=== PATIENT | female | born 1945 | race Caucasian/White ===

== ENCOUNTER → 2016-09-11 | Outpatient (CLI) | payer OTHER ==
[2016-09-11 13:09] LABS: Urine RBC None Seen /hpf (0 - 4)
[2016-09-11 13:18] LABS: Basophils # (auto) 0 uL; Basophils % (auto) 0.7 % (0.0-2.0); Eosinophils # (auto) 0.2 uL; Eosinophils % (auto) 3.5 % (0.0-7.0); Hematocrit 44.3 % (36.0-46.0); Hemoglobin 14.6 g/dL (12.2-16.2); Lymphocytes # (auto) 1.7 uL; Lymphocytes % (auto) 25.8 % (10.0-50.0); Mean Corpuscular Hgb Conc. 32.9 g/dL (32.0-36.0); Mean Corpuscular Volume 94.4 fL (80.0-100.0); Mean Platelet Volume 9.5 fL (7.4-10.4); Monocytes # (auto) 0.4 uL; Neutrophils # (auto) 4.3 uL; Platelet Count (auto) 271 10^3/uL (140-450); Red Cell Distribution Width 16.6 % (11.6-16.0); White Blood Cell 6.7 10^3/uL (4.4-10.8)
[2016-09-11 13:49] LABS: INR 2.55 (0.9-1.15); Prothrombin Time 26.3 sec (9.37-12.3)
[2016-09-11 14:15] LABS: Urine Bilirubin Negative (Negative); Urine Blood Negative /uL (Negative); Urine Color Yellow (Yellow); Urine Glucose Normal (Normal); Urine Ketone Negative (Negative); Urine Nitrite Negative (Negative); Urine Squamous Epithelial Cell FEW /hpf (<5); Urine Urobilinogen Normal (Negative); Urine pH 6.5 (5.0-8.0)
[2016-09-11 15:27] LABS: Albumin 3.7 g/dL (3.4-5.0); BUN/Creatinine Ratio 18.6; Bilirubin, Total 0.7 mg/dL (0.2-1.0); Calcium 9.1 mg/dL (8.5-10.1); Total Protein 7.1 g/dL (6.4-8.2)
== END | disposition home or self-care (01) ==
LOC: LAB 11:01
PROVIDERS: ATTEND Family Medicine
DX: E78.5 Hyperlipidemia, unspecified (principal); I10 Essential (primary) hypertension
CPT/HCPCS: 36415; 80053; 80061; 81001; 82306; 85025; 85610; 85652; 86141

== ENCOUNTER → 2017-01-07 | Outpatient (CLI) | payer OTHER ==
[2017-01-07 12:32] LABS: Basophils # (auto) 0.1 uL; Basophils % (auto) 0.9 % (0.0-2.0); CONDITION Y; Eosinophils # (auto) 0.2 uL; Eosinophils % (auto) 2.7 % (0.0-7.0); Hematocrit 44.4 % (36.0-46.0); Hemoglobin 14.9 g/dL (12.2-16.2); Lymphocytes # (auto) 2.3 uL; Lymphocytes % (auto) 31.1 % (10.0-50.0); Mean Corpuscular Hemoglobin 30.7 pg (28.0-32.0); Mean Corpuscular Hgb Conc. 33.5 g/dL (32.0-36.0); Mean Corpuscular Volume 91.9 fL (80.0-100.0); Mean Platelet Volume 8.4 fL (7.4-10.4); Monocytes # (auto) 0.4 uL; Monocytes % (auto) 5.8 % (0.0-12.0); Neutrophils # (auto) 4.4 uL; Neutrophils % (auto) 59.5 % (37.0-80.0); Platelet Count (auto) 263 10^3/uL (140-450); White Blood Cell 7.4 10^3/uL (4.4-10.8)
[2017-01-07 12:46] LABS: INR 2.11 (0.9-1.15)
[2017-01-07 12:51] LABS: Prothrombin Time 23.2 sec (9.37-12.3)
[2017-01-07 13:09] LABS: Albumin 3.5 g/dL (3.4-5.0); BUN/Creatinine Ratio 14.1; Bilirubin, Total 0.7 mg/dL (0.2-1.0); Calcium 9.2 mg/dL (8.5-10.1); Potassium 3.7 mmol/L (3.5-5.1); Total Protein 7.4 g/dL (6.4-8.2)
== END | disposition home or self-care (01) ==
LOC: LAB 10:40
PROVIDERS: ATTEND Family Medicine
DX: Z79.899 Other long term (current) drug therapy (principal); D64.9 Anemia, unspecified; I10 Essential (primary) hypertension; E78.5 Hyperlipidemia, unspecified; M06.9 Rheumatoid arthritis, unspecified; M25.50 Pain in unspecified joint
CPT/HCPCS: 36415; 80053; 82270; 85025; 85610; 85652; 86141

== ENCOUNTER → 2017-04-09 | Outpatient (CLI) | payer OTHER ==
[2017-04-09 12:15] LABS: Basophils # (auto) 0.1 uL; Basophils % (auto) 2.1 % (0.0-2.0); Eosinophils # (auto) 0.2 uL; Eosinophils % (auto) 3.1 % (0.0-7.0); Hematocrit 44.7 % (36.0-46.0); Hemoglobin 15.2 g/dL (12.2-16.2); Mean Corpuscular Hemoglobin 32.3 pg (28.0-32.0); Mean Corpuscular Hgb Conc. 34.1 g/dL (32.0-36.0); Mean Corpuscular Volume 94.6 fL (80.0-100.0); Mean Platelet Volume 8.7 fL (6.9-10.8); Monocytes # (auto) 0.4 uL; Monocytes % (auto) 6.6 % (0.0-12.0); Neutrophils # (auto) 3.7 uL; Neutrophils % (auto) 57.2 % (37.0-80.0); Platelet Count (auto) 218 10^3/uL (140-450); Red Cell Distribution Width 17.5 % (11.8-14.3); White Blood Cell 6.4 10^3/uL (4.4-10.8)
[2017-04-09 12:23] LABS: INR 2.09 (0.9-1.15); Prothrombin Time 22.9 sec (9.37-12.3)
[2017-04-09 13:23] LABS: Albumin 3.7 g/dL (3.4-5.0); Bilirubin, Total 0.8 mg/dL (0.2-1.0); Calcium 8.9 mg/dL (8.5-10.1); Potassium 3.9 mmol/L (3.5-5.1); Total Protein 7.5 g/dL (6.4-8.2)
[2017-04-09 13:29] LABS: BUN/Creatinine Ratio 18.9
== END | disposition home or self-care (01) ==
LOC: LAB 11:52
DX: I10 Essential (primary) hypertension (principal); I70.0 Atherosclerosis of aorta; E78.00 Pure hypercholesterolemia, unspecified; D64.9 Anemia, unspecified; M06.9 Rheumatoid arthritis, unspecified; M25.50 Pain in unspecified joint; Z79.899 Other long term (current) drug therapy
CPT/HCPCS: 36415; 80053; 83540; 83550; 85025; 85610; 85652; 86141

== ENCOUNTER → 2018-05-29 | Outpatient (CLI) | payer OTHER ==
[2018-05-29 10:48] LABS: Basophils # (auto) 0.1 uL; Basophils % (auto) 1.2 % (0.0-2.0); Eosinophils # (auto) 0.2 uL; Eosinophils % (auto) 3.1 % (0.0-7.0); Hematocrit 46.7 % (36.0-46.0); Hemoglobin 15.6 g/dL (12.2-16.2); Lymphocytes # (auto) 1.4 uL; Lymphocytes % (auto) 24.1 % (10.0-50.0); Mean Corpuscular Hemoglobin 31.6 pg (28.0-32.0); Mean Corpuscular Hgb Conc. 33.3 g/dL (32.0-36.0); Mean Corpuscular Volume 94.9 fL (80.0-100.0); Monocytes # (auto) 0.4 uL; Monocytes % (auto) 7.2 % (0.0-12.0); Neutrophils # (auto) 3.8 uL; Neutrophils % (auto) 64.4 % (37.0-80.0); Platelet Count (auto) 220 10^3/uL (140-450); Red Blood Cells 4.92 10^6/uL (4.0-5.20); Red Cell Distribution Width 15.7 % (11.8-14.3); White Blood Cell 5.9 10^3/uL (4.4-10.8)
[2018-05-29 11:07] LABS: INR 1.61 (0.9-1.15); Partial Thromboplastin Time 42.2 sec (23.78-33.04); Prothrombin Time 16.8 sec (9.27-12.13)
[2018-05-29 11:40] LABS: Potassium 3.7 mmol/L (3.5-5.1)
[2018-05-29 11:49] LABS: Albumin 3.6 g/dL (3.4-5.0); BUN/Creatinine Ratio 15.9; Bilirubin, Total 0.9 mg/dL (0.2-1.0); Calcium 9.3 mg/dL (8.5-10.1); Total Protein 7.3 g/dL (6.4-8.2)
== END | disposition home or self-care (01) ==
LOC: LAB 10:18
PROVIDERS: ATTEND Internal Medicine
DX: I10 Essential (primary) hypertension (principal); E78.5 Hyperlipidemia, unspecified
CPT/HCPCS: 36415; 80053; 80061; 83036; 84443; 85025; 85610; 85730

== ENCOUNTER 2018-07-28 02:09 | Emergency (ER) | payer OTHER ==
[~2018-07-28] VITALS: Ht 157.5 cm; Wt 70.8 kg
[~2018-07-28 02:09] MED LIST: AML5T PO; LISI40TA PO; METH2.5T3 PO; PRE1T PO; WARF5TAB PO
[2018-07-28 03:28] LABS: Albumin 3.4 g/dL (3.4-5.0); Calcium 9.4 mg/dL (8.5-10.1); Magnesium 1.7 mg/dL (1.6-2.6); Potassium 3.4 mmol/L (3.5-5.1); Urine Bacteria NONE SEEN /hpf (None Seen); Urine Blood Negative /uL (Negative); Urine Specific Gravity 1.003 (1.001-1.035); Urine WBC <1 /hpf (0 - 5)
[2018-07-28 03:32] LABS: Basophils # (auto) 0.1 uL; Eosinophils # (auto) 0.2 uL; Eosinophils % (auto) 1.9 % (0.0-7.0); Hematocrit 43.8 % (36.0-46.0); Hemoglobin 14.9 g/dL (12.2-16.2); Lymphocytes # (auto) 2.1 uL; Lymphocytes % (auto) 24.3 % (10.0-50.0); Mean Corpuscular Hemoglobin 31.8 pg (28.0-32.0); Mean Corpuscular Volume 93.8 fL (80.0-100.0); Monocytes # (auto) 0.8 uL; Monocytes % (auto) 8.8 % (0.0-12.0); Neutrophils # (auto) 5.6 uL; Platelet Count (auto) 223 10^3/uL (140-450); Red Blood Cells 4.67 10^6/uL (4.0-5.20); Red Cell Distribution Width 15.2 % (11.8-14.3); White Blood Cell 8.7 10^3/uL (4.4-10.8)
[2018-07-28 03:33] LABS: BUN/Creatinine Ratio 16.7; Bilirubin, Total 0.8 mg/dL (0.2-1.0); Total Protein 6.7 g/dL (6.4-8.2)
[2018-07-28 03:40] LABS: INR 8.1 (0.9-1.15)
[2018-07-28] MEDS ORDERED: LORazepam 2MG/ML-1ML VIAL IV ONE (03:45)
[2018-07-28 07:15] VITALS: BP 125/51
[2018-07-28] MEDS ORDERED: POTASSIUM CHL 20 Meq TABLET PO ONE (07:15)
== END 2018-07-28 08:14 | disposition home or self-care (01) ==
LOC: EDBD 02:09 → ER 02:20
DX: R07.89 Other chest pain (principal); E87.6 Hypokalemia; D68.9 Coagulation defect, unspecified; R53.1 Weakness; I25.2 Old myocardial infarction; I10 Essential (primary) hypertension; Z86.73 Personal history of transient ischemic attack (TIA), and cerebral infarction without residual deficits; Z88.0 Allergy status to penicillin; Z91.041 Radiographic dye allergy status
CPT/HCPCS: 36415; 71045; 80053; 81001; 83735; 83880; 84443; 84484; 85025; 85610; 85730; 93005; 96374; 99284; J2060

== ENCOUNTER → 2018-08-05 | Outpatient (CLI) | payer OTHER ==
[~2018-08-05] MED LIST changes: +HYDR12.56 PO
[2018-08-05 11:48] LABS: BUN/Creatinine Ratio 13.7; Calcium 8.8 mg/dL (8.5-10.1); Potassium 3.4 mmol/L (3.5-5.1)
== END | disposition home or self-care (01) ==
LOC: LAB 10:13
PROVIDERS: ATTEND Internal Medicine
DX: I10 Essential (primary) hypertension (principal)
CPT/HCPCS: 36415; 80048; 84443

== ENCOUNTER 2018-08-06 10:03 | Inpatient (IN) | payer OTHER | END 2018-08-08 15:50 | disposition home or self-care (01) | LOC: ER 10:03 → TELE 15:47 → TELE-WESTW 18:52 | DX: I49.3 Ventricular premature depolarization (principal); R00.8 Other abnormalities of heart beat ==

== ENCOUNTER 2018-10-02 19:34 | Inpatient (IN) | payer OTHER ==
[~2018-10-02] VITALS: Ht 157.5 cm; Wt 76.2 kg
[2018-10-02 19:20] VITALS: BP 146/70
--- NOTE | 2018-10-02 19:20 | NUR ---
Patient transferred from [facility] via [facility] assisted by 2 EMT. Patient's respiration even and unlabored, denies pain and discomfort at this time. Patient able to ambulate from bed to bathroom with stable gait and balance. Patient not in acute distress. Will page TANK ERECTOR for admission orders.
[2018-10-02 19:40] VITALS: BP 146/70
--- NOTE | 2018-10-02 21:30 | NUR ---
SUPPORT ANALYST aware patient at room 292B.
[2018-10-02 21:50] VITALS: BP 146/70
[2018-10-02] MEDS ORDERED: LORA-654 PO (22:13)
--- NOTE | 2018-10-02 22:34 | NUR ---
EMELINA Chowdhury at the nurses/ at patient's bedside to discuss plan of care.
[2018-10-02] MEDS ORDERED: ACETAMINOPHEN 500 MG TAB PO PRN (22:45)
[2018-10-02] MEDS ORDERED: ONDANSETRON HCL 4 MG/2 ML VIAL IV PRN (22:45)
[2018-10-02] MEDS ORDERED: TEMAZEPAM 15 MG CAP PO PRN (22:45)
[2018-10-02 23:18] LABS: Basophils # (auto) 0 uL; Basophils % (auto) 0.1 % (0.0-2.0); Eosinophils # (auto) 0 uL; Hematocrit 27.5 % (36.0-46.0); Hemoglobin 9.1 g/dL (12.2-16.2); Lymphocytes # (auto) 1.1 uL; Lymphocytes % (auto) 7.1 % (10.0-50.0); Mean Corpuscular Hemoglobin 31.7 pg (28.0-32.0); Mean Corpuscular Hgb Conc. 33.2 g/dL (32.0-36.0); Mean Corpuscular Volume 95.3 fL (80.0-100.0); Monocytes # (auto) 1.4 uL; Monocytes % (auto) 9.2 % (0.0-12.0); Neutrophils # (auto) 12.5 uL; Neutrophils % (auto) 83.6 % (37.0-80.0); Nucleated Red Blood Cells % 0.1 %; Platelet Count (auto) 235 10^3/uL (140-450); Red Blood Cells 2.89 10^6/uL (4.0-5.20); Red Cell Distribution Width 16.6 % (11.8-14.3)
[2018-10-02 23:39] LABS: BUN/Creatinine Ratio 20.3; Calcium 7.8 mg/dL (8.5-10.1); Potassium 3.9 mmol/L (3.5-5.1)
--- NOTE | 2018-10-03 | NUR ---
[facility]ed [facility] to verify meds. Ht/ Wt already inputed.
--- NOTE | 2018-10-03 00:32 | NUR ---
UA order Provided patient with specimen bottle/ urine hat. Instruction given to call nurse when sample available. Will continue to monitor.
[2018-10-03] MEDS: LORazepam 0.5 MG TAB PO PRN ×3 (04:02→20:51)
--- NOTE | 2018-10-03 04:11 | NUR ---
UA sample obtained, sent to lab via bullet.
[2018-10-03 04:53] VITALS: BP 143/61
[2018-10-03 06:00] LABS: Urine Bacteria FEW /hpf (None Seen); Urine Blood Negative /uL (Negative); Urine Specific Gravity 1.011 (1.001-1.035); Urine WBC 1 /hpf (0 - 5)
[2018-10-03 06:33] LABS: INR 3.06 (0.9-1.15); Partial Thromboplastin Time 32.7 sec (23.78-33.04); Prothrombin Time 30.7 sec (9.27-12.13)
--- NOTE | 2018-10-03 07:00 | NUR ---
Opening Shift Note Assumed care of the patient from the operations supervisor 2nd shift RN. The patient is A&Ox4, no signs or symptoms of distress. Educated the patient on POC and patient verbalized understanding. The patient's call light is within reach and bed is in the lowest, locked position. Will round hourly and continue to monitor.
[2018-10-03] MEDS: traMADol HCL 50 MG TAB PO PRN ×2 (07:03→20:51)
[2018-10-03 08:00] VITALS: BP 125/78
--- NOTE | 2018-10-03 08:20 | NUR ---
Patient off floor for CT of abdomen and pelvis.
--- NOTE | 2018-10-03 09:18 | NUR ---
Report of hematoma by radiologist. RadiologistAlina Stephen MD., called to report a hematoma in the abdomen, report already in electronic medical record. Will report findings to the Physician responsible for care. Will continue to monitor.
[2018-10-03 09:25] VITALS: BP 146/72
--- NOTE | 2018-10-03 09:26 | NUR ---
Patient's son called. Spoke with son, after receiving the patient's password. He asked how his mother was doing and I told him she was down for a CT of the abdomen and pelvis. The patient is in good spirits and she is alert and oriented. I do not have any other information because the physician has not, as of now, been in this morning. He said "thank you" and said he will be in this morning to see her. Will continue to monitor.
[2018-10-03] MEDS ORDERED: FAMOTIDINE 20 MG TAB PO SCH (10:00)
[2018-10-03] MEDS: predniSONE 1 MG TAB PO SCH (10:59)
[2018-10-03] MEDS: cefTRIAXone 1GM/50ML D5W 50 ML IV SCH (11:00)
[2018-10-03] MEDS: AMIODARONE HCL 200 MG TAB PO SCH (11:00)
[2018-10-03] MEDS: LISINOPRIL 20 MG TAB PO SCH (11:01)
[2018-10-03] MEDS: HCTZ 25 MG TAB PO SCH (11:01)
--- NOTE | 2018-10-03 11:30 | NUR ---
Dr. Robert Swain at bedside
[2018-10-03 13:00] VITALS: BP 144/72
[2018-10-03 17:00] VITALS: BP 127/66
[2018-10-03] MEDS ORDERED: WARFARIN SODIUM 2 MG TAB PO ONE (17:00)
--- NOTE | 2018-10-03 17:00 | NUR ---
Coumadin held Held the Coumadin per Dr. Swain's notes.
--- NOTE | 2018-10-03 19:09 | NUR ---
Opening Shift Note Assumed care of patient, awake and alertx4. No S/S of distress/SOB or pain. Bed is in lowest position, call light within reach, side rails up x2. Instructed on POC and to call for assist PRN, will continue to monitor for changes Q1hr and PRN.
[2018-10-03 22:00] VITALS: BP 138/70
[2018-10-03] MEDS ORDERED: ATORVASTATIN 20 MG TAB PO SCH (22:00)
[2018-10-04 05:00] VITALS: BP 147/78
[2018-10-04 06:11] LABS: INR 3.71 (0.9-1.15); Prothrombin Time 36.9 sec (9.27-12.13)
--- NOTE | 2018-10-04 07:00 | NUR ---
Patient is resting in bed. No S/S of distress, SOB, or pain. Will endorse care to daysamira Salazar.
[2018-10-04 08:00] VITALS: BP 148/74
[2018-10-04] MEDS: predniSONE 1 MG TAB PO SCH (08:12)
[2018-10-04 08:54] VITALS: BP 148/74
[2018-10-04] MEDS ORDERED: FAMOTIDINE 20 MG TAB PO SCH (10:00)
[2018-10-04] MEDS: cefTRIAXone 1GM/50ML D5W 50 ML IV SCH (10:19)
[2018-10-04] MEDS: HCTZ 25 MG TAB PO SCH (10:20)
[2018-10-04] MEDS: AMIODARONE HCL 200 MG TAB PO SCH (10:20)
[2018-10-04] MEDS: LISINOPRIL 20 MG TAB PO SCH (10:21)
--- NOTE | 2018-10-04 10:21 | NUR ---
IV insertion IV access obtained, via clean sterile technique by inserting gauge catheter at left forearm after 1 attempt. IV secured properly. No trauma to site. Patient tolerated well.
--- NOTE | 2018-10-04 10:22 | NUR ---
IV removal IV DC'd with clean sterile technique from left forearm, catheter fully intact. Pressure dressing applied to site. Patient tolerated well.
[2018-10-04] MEDS: LORazepam 0.5 MG TAB PO PRN (11:55)
[2018-10-04 13:00] VITALS: BP 146/74
--- NOTE | 2018-10-04 15:44 | NUR ---
Discharge instructions given as ordered. Encourage to follow up with PMD as instructed. All questions and concerns addressed. Patient verbalized understanding. Medication reconciliation form completed and copy given to patient. Home medications held in Pharmacy returned to patient, and needed vaccines given. IV removed with catheter intact, pressure dressing applied. Telemetry unit returned to ICU. Patient taken to vehicle via wheelchair with all personal belongings, accompanied by staff and family member. No distress noted at time of departure.
[2018-10-05] MEDS ORDERED: METHOTREXATE 2.5 MG TAB PO SCH (10:00)
== END 2018-10-04 15:45 | disposition home or self-care (01) | DRG 871 ==
LOC: TELE-WESTW 19:34
PROVIDERS: ADMIT Internal Medicine; ATTEND Internal Medicine
DX: A41.9 Sepsis, unspecified organism (principal); G93.41 Metabolic encephalopathy; N39.0 Urinary tract infection, site not specified; E78.00 Pure hypercholesterolemia, unspecified; E78.5 Hyperlipidemia, unspecified; F32.9 Major depressive disorder, single episode, unspecified; I10 Essential (primary) hypertension; S30.1XXA Contusion of abdominal wall, initial encounter; T45.515A Adverse effect of anticoagulants, initial encounter; M79.81 Nontraumatic hematoma of soft tissue; X58.XXXA Exposure to other specified factors, initial encounter; F41.9 Anxiety disorder, unspecified; M06.9 Rheumatoid arthritis, unspecified; Z79.01 Long term (current) use of anticoagulants; Z79.899 Other long term (current) drug therapy; Z87.440 Personal history of urinary (tract) infections; Z95.1 Presence of aortocoronary bypass graft; Z95.2 Presence of prosthetic heart valve; Z88.0 Allergy status to penicillin; Z91.041 Radiographic dye allergy status; Y93.89 Activity, other specified; Y92.89 Other specified places as the place of occurrence of the external cause; Y99.8 Other external cause status
CPT/HCPCS: 36415; 74176; 80048; 81001; 85025; 85610; 85730; 87040; 87081; 87086; G0378; J0696

== ENCOUNTER 2018-10-20 11:48 | Inpatient (IN) | payer OTHER ==
[~2018-10-20] VITALS: Ht 157.5 cm; Wt 71.4 kg
[~2018-10-20 11:48] MED LIST changes: +LORA-654 PO
[2018-10-20] MEDS ORDERED: ONDANSETRON HCL 4 MG/2 ML VIAL IV ONE (12:30)
[2018-10-20] MEDS ORDERED: MORPHINE SULFATE 4 MG/ML SYR/VIAL IV ONE (12:30)
[2018-10-20 12:58] LABS: Basophils # (auto) 0.1 uL; Basophils % (auto) 1.2 % (0.0-2.0); Eosinophils # (auto) 0.1 uL; Eosinophils % (auto) 1.4 % (0.0-7.0); Hematocrit 38.5 % (36.0-46.0); Hemoglobin 12.8 g/dL (12.2-16.2); Lymphocytes # (auto) 0.7 uL; Mean Corpuscular Hemoglobin 32.7 pg (28.0-32.0); Mean Corpuscular Hgb Conc. 33.2 g/dL (32.0-36.0); Mean Corpuscular Volume 98.5 fL (80.0-100.0); Monocytes # (auto) 0.3 uL; Monocytes % (auto) 6.9 % (0.0-12.0); Neutrophils # (auto) 3.6 uL; Neutrophils % (auto) 75.5 % (37.0-80.0); Nucleated Red Blood Cells % 0.2 %; Platelet Count (auto) 237 10^3/uL (140-450); Red Blood Cells 3.91 10^6/uL (4.0-5.20); Red Cell Distribution Width 19.9 % (11.8-14.3); White Blood Cell 4.8 10^3/uL (4.4-10.8)
[2018-10-20 13:18] LABS: Anion Gap 7 (5-15); Blood Urea Nitrogen 14 mg/dL (7-18); Calcium 8.6 mg/dL (8.5-10.1); Carbon Dioxide 26 mmol/L (21-32); Chloride 101 mmol/L (98-107); Glucose 162 mg/dL (74-106); Magnesium 1.7 mg/dL (1.6-2.6); Potassium 3.7 mmol/L (3.5-5.1); Sodium 134 mmol/L (136-145)
[2018-10-20 13:22] LABS: Alanine Aminotransferase 19 U/L (13-56); Alkaline Phosphatase 155 U/L (45-117); Aspartate Aminotransferase 35 U/L (15-37); BUN/Creatinine Ratio 19.4; Bilirubin, Total 0.9 mg/dL (0.2-1.0); GFR African American 103 mL/min; GFR Non-African American 85 mL/min; INR > 10 (0.9-1.15); Total Protein 6.7 g/dL (6.4-8.2)
[2018-10-20 13:30] LABS: Urine Bacteria FEW /hpf (None Seen); Urine Blood Negative /uL (Negative); Urine Specific Gravity 1.004 (1.001-1.035); Urine WBC 3 /hpf (0 - 5)
[2018-10-20] MEDS ORDERED: LORazepam 0.5 MG TAB PO PRN (14:45)
[2018-10-20] MEDS ORDERED: NITROGLYCERIN 0.4 MG SL TAB SL PRN (14:45)
[2018-10-20] MEDS ORDERED: MORPHINE SULF INJ 2 MG/ML SYRINGE 1ML IV PRN (14:45)
--- NOTE | 2018-10-20 15:45 | NUR ---
Telemetry admit from [facility] admitted to Telemetry unit after SBAR received. Patient oriented to WES SMITH, primary RN, unit, room, bed, and unit policies regarding patient care and visiting hours. Patient now on continuous telemetry monitoring, tele box # 19 and telemetry reading on arrival to unit is . Patient placed on bedside oxygen, weighed by bed scale and encouraged to call if they need something. All questions and concerns addressed, patient verbalized understanding.
[2018-10-20 15:58] VITALS: BP 120/56
[2018-10-20 16:45] VITALS: BP 120/56
--- NOTE | 2018-10-20 19:24 | NUR ---
Opening Shift Note Assumed care of patient, awake and alert x 4. No S/S of distress/SOB. Bed is in lowest position and locked. Call light within reach. Board updated. Tele box number matches monitor and leads are in correct placement. Instructed on POC and to call for assist PRN, will continue to monitor for changes Q1hr and PRN.
[2018-10-20] MEDS: ATORVASTATIN 20 MG TAB PO SCH (21:27)
--- NOTE | 2018-10-20 21:58 | NUR ---
Yaima hospitalist because patient is requesting medications for anxiety, sleep and mild pain. Patient states that she takes Ativan 1 mg PO TID PRN anxiety and home and though she was given 0.5 mg PO at 1459 her anxiety has gotten worse. She requests her home dose be reinstated. She also requests a sleeping pill, Temazepam 15 mg, because she has difficulty sleeping in strange places. patient also requests Tylenol PRN mild pain for lower back ache. Addendum: 10/20/18 at 2231 by CAITLIN BUTLER RN Pain in lower back is 3 out of 10.
[2018-10-20 21:59] VITALS: BP 111/55
--- NOTE | 2018-10-20 23:57 | NUR ---
Paging hospitalist again.
--- NOTE | 2018-10-21 00:02 | NUR ---
Spoke to EMELINA Chowdhury who ordered Tylenol 650 mg PO q 6 hrs PRN mild pain, Lorazepam 1 mg PO q 8 hrs PRN anxiety, and Temazepam 15 mg PO once.
[2018-10-21] MEDS: LORazepam 0.5 MG TAB PO PRN ×3 (00:12→19:39)
[2018-10-21] MEDS: ACETAMINOPHEN 325 MG TAB PO PRN ×2 (00:13→21:03)
[2018-10-21 04:57] VITALS: BP 123/72
[2018-10-21 06:20] LABS: Prothrombin Time 81.4 sec (9.27-12.13)
[2018-10-21 06:22] LABS: INR 8.59 (0.9-1.15)
--- NOTE | 2018-10-21 07:34 | NUR ---
Endorsed Critical INR value of 8.59 to day shift RN.
[2018-10-21 09:00] VITALS: BP 111/63
[2018-10-21] MEDS: predniSONE 1 MG TAB PO SCH (09:49)
[2018-10-21] MEDS: HCTZ 25 MG TAB PO SCH (09:50)
[2018-10-21] MEDS: amLODIPine BESYLATE 5 MG TAB PO SCH (09:51)
[2018-10-21] MEDS: LISINOPRIL 10 MG TAB PO SCH (09:52)
[2018-10-21] MEDS: PANTOPRAZOLE 40 MG TAB PO SCH (09:52)
[2018-10-21 13:00] VITALS: BP 120/54
[2018-10-21] MEDS ORDERED: ONDANSETRON HCL 4 MG/2 ML VIAL IV PRN (16:45)
[2018-10-21 17:08] VITALS: BP 128/57
[2018-10-21] MEDS: ATORVASTATIN 20 MG TAB PO SCH (21:03)
[2018-10-21 22:00] VITALS: BP 122/62
[2018-10-21] MEDS ORDERED: TEMAZEPAM 15 MG CAP PO ONE ×2 (23:00)
--- NOTE | 2018-10-21 23:01 | NUR ---
Spoke to EMELINA Dias because the patient has been having trouble sleeping and requested medication to help her sleep. EMELINA Dias ordered Temazepam 15 mg PO Once. Order repeated, verified, and placed,
[2018-10-22 05:00] VITALS: BP 134/67
[2018-10-22] MEDS: LORazepam 0.5 MG TAB PO PRN ×3 (05:39→22:04)
[2018-10-22 06:20] LABS: Partial Thromboplastin Time 48.2 sec (23.78-33.04); Prothrombin Time 51.2 sec (9.27-12.13)
[2018-10-22 06:21] LABS: INR 5.26 (0.9-1.15)
--- NOTE | 2018-10-22 06:53 | NUR ---
Endorsing critical lab value of 5.26 to day shift RN. Hospitalist aware of elevated INR previously and is waiting for it to trend down, which it is.
--- NOTE | 2018-10-22 09:00 | NUR ---
PATIENT ANXIETY/DEPRESSION PATIENT STATES SHE HAS LOST 14 POUNDS AND HAS NO APPETITE. PATIENT EMOTIONALLY UPSET, EMOTIONAL SUPPORT PROVIDED AT THIS TIME. PATIENT DENIES SUICIDAL IDEATION. PATIENT STATES SHE WAS TAKING ANTIDEPRESSANTS PREVIOUSLY BUT HER DOCTOR TOOK HER OFF OF THEM, DENYING ANY SUICIDAL THOUGHTS WHEN THIS OCCURRED. WILL INFORM MD. WILL CONTINUE CARE.
[2018-10-22] MEDS: predniSONE 1 MG TAB PO SCH (09:05)
[2018-10-22] MEDS: PANTOPRAZOLE 40 MG TAB PO SCH (09:06)
[2018-10-22] MEDS: HCTZ 25 MG TAB PO SCH (09:07)
[2018-10-22] MEDS: LISINOPRIL 10 MG TAB PO SCH (09:07)
[2018-10-22] MEDS: amLODIPine BESYLATE 5 MG TAB PO SCH (09:07)
[2018-10-22 09:11] VITALS: BP 133/64
--- NOTE | 2018-10-22 11:35 | NUR ---
MD GODOY AT BEDSIDE. UPDATED ON PATIENT STATUS EMOTIONAL SUPPORT PROVIDED AT THIS TIME. NEW ORDERS GIVEN, SEE ORDERS.
[2018-10-22] MEDS: Ensure Enlive Strawberry 8oz Bottle PO SCH (12:00)
[2018-10-22 12:44] VITALS: BP 131/69
--- NOTE | 2018-10-22 15:00 | NUR ---
TELE PSYCH CONSULT COMPLETE. AWAITING FAXED REPORT, WILL PLACE IN CHART. WILL CONTINUE CARE.
--- NOTE | 2018-10-22 15:50 | NUR ---
TELE PSYCH RECOMMENDATION RECEIVED VIA FAX, PLACED IN CHART RECOMMENDATION OF MIRTAZAPINE 7.5MG PO QHS, INCREASED TO 15 MG WITHIN A WEEK DEPENDING ON CLINICAL RESPONSE. CONSULT ID [id number]. WILL INFORM
--- NOTE | 2018-10-22 15:52 | NUR ---
INFORMED MD GODOY OF PSYCH MEDICATION RECOMMENDATION. NEW ORDERS TO FOLLOW THROUGH WITH RECOMMENDATION OF MIRTAZAPINE 7.5MG PO QHS. WILL FOLLOW THROUGH WITH NEW ORDERS.
[2018-10-22 17:23] VITALS: BP 119/63
--- NOTE | 2018-10-22 19:12 | NUR ---
CLOSING NOTE ENDORSED CARE TO CUSHION INSTALLER RN. NO S/S OF DISTRESS. BED IN LOW LOCK POSITION, CALL LIGHT IN REACH.
--- NOTE | 2018-10-22 19:15 | NUR ---
assumed care, pt. awake, pt. awake, no c/o pain, no sob.
[2018-10-22] MEDS: ATORVASTATIN 20 MG TAB PO SCH (21:12)
[2018-10-22 22:00] VITALS: BP 116/67
[2018-10-22] MEDS ORDERED: MIRTAZAPINE 30 MG TAB PO SCH (22:00)
[2018-10-22] MEDS: ACETAMINOPHEN 325 MG TAB PO PRN (22:05)
[2018-10-23 04:56] VITALS: BP 131/66
[2018-10-23 06:23] LABS: INR 3.35 (0.9-1.15); Prothrombin Time 33.5 sec (9.27-12.13)
[2018-10-23] MEDS: Ensure Enlive Strawberry 8oz Bottle PO SCH ×2 (08:14→12:00)
[2018-10-23 08:43] VITALS: BP 116/56
[2018-10-23] MEDS: LORazepam 0.5 MG TAB PO PRN (09:31)
[2018-10-23] MEDS: PANTOPRAZOLE 40 MG TAB PO SCH (09:32)
[2018-10-23] MEDS: amLODIPine BESYLATE 5 MG TAB PO SCH (09:33)
[2018-10-23] MEDS: LISINOPRIL 10 MG TAB PO SCH (09:33)
[2018-10-23] MEDS: predniSONE 1 MG TAB PO SCH (09:33)
[2018-10-23] MEDS: HCTZ 25 MG TAB PO SCH (09:34)
--- NOTE | 2018-10-23 10:00 | NUR ---
IV removal- Patient refusing new IV IV DC'd with clean sterile technique, catheter fully intact. Pressure dressing applied to site. Patient tolerated well.
[2018-10-23 12:24] VITALS: BP 116/56
[2018-10-23 13:58] VITALS: BP 119/49
--- NOTE | 2018-10-23 14:40 | NUR ---
Discharge instructions given as ordered. Encourage to follow up with PMD as instructed. All questions and concerns addressed. Patient verbalized understanding. Medication reconciliation form completed and copy given to patient. Telemetry unit returned to ICU. Prescriptions picked up from [facility] by patient and family member. Patient taken to vehicle via wheelchair with all personal belongings, accompanied by staff and family member. No distress noted at time of departure.
--- NOTE | 2018-10-23 16:10 | NUR ---
assessment Patient is a 73 year old female who is alert and oriented. Patients cognitive abilities are intact. Prior to admission patient lived home with family and functioned independently. Patient informed me she is able to care for her own ADLs. Per patient she will return home to her prior living arrangements post discharge and family will transport her home. Patient informed me she has a shower chair and cane for home use. Patient informed me her PCP is Dr Herman. Patient has no post discharge needs at this time. I informed patient she has a right to speak to a aids social worker regarding all care. I informed patient she has a right to participate in any and all discharge planning. Patient is aware of visiting hours on the hospital floor. I informed patient she has a right to privacy. Patient has a POA and advanced directive. Patient verbalized understanding and agreed to discharge plan. Addendum: 10/23/18 at 1612 by Belem HIGGINS Amended: Links added.
== END 2018-10-23 14:40 | disposition home or self-care (01) | DRG 313 ==
LOC: ER 11:48 → TELE 14:42 → TELE-WESTW 15:51
PROVIDERS: ADMIT Internal Medicine; ATTEND Family Medicine
DX: R07.9 Chest pain, unspecified (principal); F13.20 Sedative, hypnotic or anxiolytic dependence, uncomplicated; I24.9 Acute ischemic heart disease, unspecified; N30.01 Acute cystitis with hematuria; I25.10 Atherosclerotic heart disease of native coronary artery without angina pectoris; I10 Essential (primary) hypertension; M06.9 Rheumatoid arthritis, unspecified; F41.9 Anxiety disorder, unspecified; E78.00 Pure hypercholesterolemia, unspecified; F17.210 Nicotine dependence, cigarettes, uncomplicated; F32.9 Major depressive disorder, single episode, unspecified; T45.515A Adverse effect of anticoagulants, initial encounter; Z82.49 Family history of ischemic heart disease and other diseases of the circulatory system; Z86.73 Personal history of transient ischemic attack (TIA), and cerebral infarction without residual deficits; Z90.710 Acquired absence of both cervix and uterus; Z95.2 Presence of prosthetic heart valve; Z88.0 Allergy status to penicillin; Z91.041 Radiographic dye allergy status; Z98.49 Cataract extraction status, unspecified eye; Z79.899 Other long term (current) drug therapy; Y92.89 Other specified places as the place of occurrence of the external cause
CPT/HCPCS: 36415; 71045; 80053; 81001; 83735; 83880; 84443; 84484; 85025; 85610; 85730; 87086; 93005; 93306; 94761; 96374; 96375; G0378; J2405

== ENCOUNTER → 2018-11-04 | Outpatient (CLI) | payer OTHER | END | disposition home or self-care (01) | LOC: LAB 08:39 | PROVIDERS: ATTEND Internal Medicine | DX: R73.09 Other abnormal glucose (principal); F32.9 Major depressive disorder, single episode, unspecified; I25.10 Atherosclerotic heart disease of native coronary artery without angina pectoris; I10 Essential (primary) hypertension; R00.1 Bradycardia, unspecified | CPT/HCPCS: 36415; 83036 ==

== ENCOUNTER 2018-11-19 14:41 | Inpatient (IN) | payer OTHER ==
--- NOTE | 2018-11-11 22:00 | NUR ---
Patient had liquid stool for the third time. Stool specimen sent to check for C. diff. Care continued. Addendum: 11/20/18 at 0050 by Ariana Goldstein RN incorrect time and date
[~2018-11-19] VITALS: Ht 157.5 cm; Wt 63.6 kg
[~2018-11-19 14:41] MED LIST changes: -LORA-654 PO; +LORA0.5T12 PO
[2018-11-19] MEDS ORDERED: SODIUM CHLORIDE 0.9% 1,000 ML IVB ONE (15:12)
[2018-11-19 15:41] LABS: Basophils # (auto) 0.1 uL; Eosinophils # (auto) 0.1 uL; Eosinophils % (auto) 1.3 % (0.0-7.0); Hemoglobin 13.8 g/dL (12.2-16.2); Lymphocytes # (auto) 0.8 uL; Lymphocytes % (auto) 16.5 % (10.0-50.0); Mean Corpuscular Hemoglobin 32.7 pg (28.0-32.0); Mean Corpuscular Hgb Conc. 33.7 g/dL (32.0-36.0); Mean Corpuscular Volume 97.1 fL (80.0-100.0); Monocytes # (auto) 0.4 uL; Monocytes % (auto) 7.3 % (0.0-12.0); Neutrophils # (auto) 3.6 uL; Neutrophils % (auto) 72.9 % (37.0-80.0); Nucleated Red Blood Cells % 0.1 %; Platelet Count (auto) 208 10^3/uL (140-450); Red Blood Cells 4.23 10^6/uL (4.0-5.20); Red Cell Distribution Width 16.4 % (11.8-14.3); White Blood Cell 4.9 10^3/uL (4.4-10.8)
[2018-11-19 15:59] LABS: Magnesium 1.7 mg/dL (1.6-2.6)
[2018-11-19 16:03] LABS: Alanine Aminotransferase 27 U/L (13-56); Anion Gap 11 (5-15); Aspartate Aminotransferase 38 U/L (15-37); BUN/Creatinine Ratio 16.3; Blood Urea Nitrogen 13 mg/dL (7-18); Calcium 8.6 mg/dL (8.5-10.1); Carbon Dioxide 23 mmol/L (21-32); Chloride 103 mmol/L (98-107); GFR African American 91 mL/min; GFR Non-African American 75 mL/min; Glucose 122 mg/dL (74-106); Potassium 3.9 mmol/L (3.5-5.1); Sodium 137 mmol/L (136-145)
[2018-11-19 16:05] LABS: Alkaline Phosphatase 115 U/L (45-117); Bilirubin, Total 0.5 mg/dL (0.2-1.0); Total Protein 6.8 g/dL (6.4-8.2)
[2018-11-19 16:24] LABS: Urine Bacteria FEW /hpf (None Seen); Urine Blood Negative /uL (Negative); Urine Specific Gravity 1.003 (1.001-1.035); Urine WBC 43 /hpf (0 - 5)
[2018-11-19 16:51] LABS: INR 4.35 (0.9-1.15)
[2018-11-19] MEDS ORDERED: cefTRIAXone 1GM/50ML D5W 50 ML IV ONE (17:00)
[2018-11-19] MEDS ORDERED: DEXTROSE (50%) 50ML SYRG IV PRN (17:00)
[2018-11-19] MEDS ORDERED: ALBUTEROL SULF 2.5 MG/0.5ML(0.5%) NEB SOLN NEB PRN (17:00)
[2018-11-19] MEDS ORDERED: HYDROcodone-ACET 5/325MG TAB PO PRN (17:00)
[2018-11-19] MEDS ORDERED: MORPHINE SULFATE 4 MG/ML SYR/VIAL IV PRN (17:00)
[2018-11-19] MEDS ORDERED: ACETAMINOPHEN 500 MG TAB PO PRN (17:00)
[2018-11-19] MEDS ORDERED: NITROGLYCERIN 0.4 MG SL TAB SL PRN (17:00)
[2018-11-19] MEDS ORDERED: MORPHINE SULF INJ 2 MG/ML SYRINGE 1ML IV PRN (17:00)
[2018-11-19] MEDS: InsuLIN REG 1unit/0.01ml Soln (100units/ml) SC SCH ×2 (17:00→23:00)
[2018-11-19] MEDS ORDERED: LEVOFLOXACIN 500MG 100 ML IV ONE (17:15)
[2018-11-19] MEDS: SODIUM CHLORIDE 0.9% 1,000 ML IV SCH (17:19)
[2018-11-19] MEDS: ACCU-CHEK COMFORT CURVE STRIP VI SCH ×2 (17:20→22:42)
--- NOTE | 2018-11-19 18:15 | NUR ---
Telemetry admit from [facility] admitted to Telemetry unit after SBAR received. Patient oriented to primary RN, unit, room, bed, and unit policies regarding patient care and visiting hours. Patient now on continuous telemetry monitoring, tele box # 30 and telemetry reading on arrival to unit is SR 80. Patient placed on bedside oxygen, weighed by bedscale and encouraged to call if they need something. All questions and concerns addressed, patient verbalized understanding.
[2018-11-19 18:26] VITALS: BP 130/65
--- NOTE | 2018-11-19 19:10 | NUR ---
Hospitalist ronny Received telephone order from Dr. Herman. Orders erad back and confirmed and entered in eMAR.
--- NOTE | 2018-11-19 19:30 | NUR ---
Opening Shift Note Assumed care of patient, awake and alert. No S/S of distress/SOB or pain. Instructed on POC and to call for assist PRN, will continue to monitor for changes Q1hr and PRN.
--- NOTE | 2018-11-19 20:32 | NUR ---
Pt assessed for prn tx. Pt denies sob. Tx is not indicated at this time. Pt is aware to page if tx is needed or she becomes SOB. HR 68 rr 18 pox 98% on room air. B/s clear.
[2018-11-19 22:00] VITALS: BP 99/60
--- NOTE | 2018-11-19 22:00 | NUR ---
Patient had liquid stool for the third time. Stool specimen sent to check for C. diff. Care continued.
--- NOTE | 2018-11-19 22:15 | NUR ---
Stool specimen verified to be received by Indira from lab. c. diff form will be sent. Care continued.
[2018-11-19 22:38] VITALS: BP 130/65
[2018-11-19] MEDS: LORazepam 0.5 MG TAB PO SCH (22:41)
[2018-11-19] MEDS: metroNIDAZOLE 500 MG TAB PO SCH (22:41)
[2018-11-19] MEDS: FAMOTIDINE 20 MG TAB PO SCH (22:42)
[2018-11-19] MEDS: ATORVASTATIN 20 MG TAB PO SCH (22:42)
[2018-11-20] MEDS: ONDANSETRON HCL 4 MG/2 ML VIAL IV PRN ×2 (00:06→16:37)
--- NOTE | 2018-11-20 00:50 | NUR ---
Called lab and talked to Indira. Indira verified receiving stool for c. diff specimen and c. diff form. Also, per Indira, stool specimen is now being processed. Patient care continued.
[2018-11-20] MEDS: TEMAZEPAM 15 MG CAP PO PRN ×2 (01:15→23:00)
[2018-11-20] MEDS: SODIUM CHLORIDE 0.9% 1,000 ML IV SCH (03:22)
[2018-11-20 05:00] VITALS: BP 130/62
[2018-11-20] MEDS: metroNIDAZOLE 500 MG TAB PO SCH ×3 (06:17→21:20)
[2018-11-20] MEDS: InsuLIN REG 1unit/0.01ml Soln (100units/ml) SC SCH (06:33)
[2018-11-20] MEDS: ACCU-CHEK COMFORT CURVE STRIP VI SCH (06:33)
[2018-11-20 06:35] LABS: INR 3.93 (0.9-1.15)
--- NOTE | 2018-11-20 07:11 | NUR ---
Respiratory note: PT NOT IN ROOM AT THIS TIME TO ASSES FOR PRN MED NEBT TX. WILL TRY AGAIN AT A LATER TIME.
[2018-11-20 09:00] VITALS: BP 129/63
[2018-11-20] MEDS ORDERED: cefTRIAXone 1GM/50ML D5W 50 ML IV SCH (09:00)
[2018-11-20] MEDS: LORazepam 0.5 MG TAB PO SCH ×2 (09:50→21:20)
[2018-11-20] MEDS: predniSONE 1 MG TAB PO SCH (09:50)
[2018-11-20] MEDS: FAMOTIDINE 20 MG TAB PO SCH ×2 (09:51→21:20)
[2018-11-20] MEDS: ASPirin 81 mg TAB PO SCH (09:51)
[2018-11-20] MEDS ORDERED: HCTZ 25 MG TAB PO SCH (10:00)
[2018-11-20] MEDS ORDERED: NITROGLYCERIN 0.2MG/HR TOPICAL PATCH TD SCH (10:00)
[2018-11-20] MEDS ORDERED: LISINOPRIL 20 MG TAB PO SCH (10:00)
[2018-11-20] MEDS ORDERED: amLODIPine BESYLATE 5 MG TAB PO SCH (10:00)
--- NOTE | 2018-11-20 11:00 | NUR ---
Rounding Dr. Rossi at bedside.
[2018-11-20 13:00] VITALS: BP 132/61
--- NOTE | 2018-11-20 13:00 | NUR ---
Diarrhea Patient has been having frequent bowel movement. Liquid greenish color stool. Stool sample already sent to lab.
--- NOTE | 2018-11-20 14:04 | NUR ---
Respiratory note: PRN MED NEB TX NOT WANTED OR INDICATED AT THIS TIME. POX 98% ON RA, BS CLEAR. PT INFORMED TO HIT CALL BUTTON IF FEELING SOB OR WHEEZING.
[2018-11-20 17:00] VITALS: BP 140/63
--- NOTE | 2018-11-20 19:30 | NUR ---
Opening Shift Note Assumed care of patient, awake and alert x4. Patient denies pain at this time. No S/S of distress/SOB noted. Instructed on plan of care and to call for assistance as needed. Bed is locked in lowest position, side rails x 2 are up, and call light is within reach.
--- NOTE | 2018-11-20 19:35 | NUR ---
Opening Shift Note Assumed care of patient, awake and alert x4. Patient denies pain at this time. No S/S of distress/SOB noted. Instructed on plan of car and to call for assistance as needed. Bed is locked in lowest position, side rails x 2 are up, and call light is within reach. Addendum: 11/21/18 at 0330 by LIZETT DING RN RN DUPLICATE NOTE.
[2018-11-20 21:00] VITALS: BP 145/68
[2018-11-20] MEDS: ATORVASTATIN 20 MG TAB PO SCH (21:20)
--- NOTE | 2018-11-21 01:28 | NUR ---
PT SEEN SLEEPING IN BED ON RA, SPO2 90%, BS CLEAR AND DIMINISHED, PRN NEB TX NOT INDICATED AT THIS TIME.
[2018-11-21 05:00] VITALS: BP 135/60
[2018-11-21] MEDS: metroNIDAZOLE 500 MG TAB PO SCH (05:40)
[2018-11-21 06:46] LABS: Basophils # (auto) 0.1 uL; Basophils % (auto) 1.6 % (0.0-2.0); Eosinophils # (auto) 0.1 uL; Eosinophils % (auto) 3.7 % (0.0-7.0); Hemoglobin 12.3 g/dL (12.2-16.2); Lymphocytes # (auto) 0.9 uL; Lymphocytes % (auto) 26.7 % (10.0-50.0); Mean Corpuscular Hemoglobin 32.8 pg (28.0-32.0); Mean Corpuscular Hgb Conc. 33.3 g/dL (32.0-36.0); Mean Corpuscular Volume 98.4 fL (80.0-100.0); Monocytes # (auto) 0.3 uL; Monocytes % (auto) 9.4 % (0.0-12.0); Neutrophils % (auto) 58.6 % (37.0-80.0); Nucleated Red Blood Cells % 0.1 %; Platelet Count (auto) 149 10^3/uL (140-450); Red Blood Cells 3.76 10^6/uL (4.0-5.20); Red Cell Distribution Width 16.1 % (11.8-14.3); White Blood Cell 3.4 10^3/uL (4.4-10.8)
--- NOTE | 2018-11-21 06:46 | NUR ---
CLOSING SHIFT NOTE Patient is laying in bed with even and unlabored respirations. Bed is locked in lowest position, side rails x 2 are up, and call light is within reach. Will endorse patient care to day shift RN.
[2018-11-21 06:48] LABS: INR 2.39 (0.9-1.15)
[2018-11-21 06:57] LABS: BUN/Creatinine Ratio 7.7; Calcium 8.2 mg/dL (8.5-10.1); Potassium 3.5 mmol/L (3.5-5.1)
[2018-11-21 08:00] VITALS: BP 129/63
[2018-11-21 08:30] VITALS: BP 149/68
[2018-11-21] MEDS: ONDANSETRON HCL 4 MG/2 ML VIAL IV PRN (09:23)
[2018-11-21] MEDS: LORazepam 0.5 MG TAB PO SCH ×2 (10:29→21:37)
[2018-11-21] MEDS: ASPirin 81 mg TAB PO SCH (10:29)
[2018-11-21] MEDS: FAMOTIDINE 20 MG TAB PO SCH ×2 (10:29→21:37)
[2018-11-21] MEDS: predniSONE 1 MG TAB PO SCH (10:29)
[2018-11-21] MEDS ORDERED: LEVOFLOXACIN 500MG 100 ML IV ONE (10:45)
[2018-11-21 12:30] VITALS: BP 126/68
[2018-11-21] MEDS ORDERED: WARFARIN SODIUM 2.5 MG TAB PO ONE (17:00)
[2018-11-21 17:24] VITALS: BP 132/70
[2018-11-21] MEDS ORDERED: ACETAMINOPHEN/CODEINE#3 (300/30mg) TAB PO ONE (17:45)
--- NOTE | 2018-11-21 18:43 | NUR ---
Pt assessed for prn tx. Pt denies sob at this time. Tx is not indicated. Pt is aware to page if tx is needed. HR 79 RR 20 POX 95% on room air. B/s clear.
[2018-11-21] MEDS: ATORVASTATIN 20 MG TAB PO SCH (21:38)
[2018-11-21 22:00] VITALS: BP 130/66
[2018-11-21] MEDS: TEMAZEPAM 15 MG CAP PO PRN (23:16)
[2018-11-22 05:00] VITALS: BP 145/65
[2018-11-22 06:31] LABS: INR 2.18 (0.9-1.15); Partial Thromboplastin Time 32.7 sec (23.64-32.05)
[2018-11-22 08:00] VITALS: BP 129/63
[2018-11-22 09:00] VITALS: BP 141/73
[2018-11-22] MEDS ORDERED: LEVOFLOXACIN 500MG 100 ML IV SCH (10:00)
[2018-11-22] MEDS: predniSONE 1 MG TAB PO SCH (10:06)
[2018-11-22] MEDS: LORazepam 0.5 MG TAB PO SCH (10:06)
[2018-11-22] MEDS: FAMOTIDINE 20 MG TAB PO SCH (10:07)
[2018-11-22] MEDS: ASPirin 81 mg TAB PO SCH (10:07)
[2018-11-22 13:00] VITALS: BP 131/74
--- NOTE | 2018-11-22 14:30 | NUR ---
Discharge prescriptions for Macrobid, Nexium, and Lisinopril called to [facility]
[2018-11-22 14:48] VITALS: BP 141/73
[2018-11-22] MEDS ORDERED: WARFARIN SODIUM 1 MG TAB PO ONE (17:00)
== END 2018-11-22 17:30 | disposition home or self-care (01) | DRG 690 ==
LOC: EDBD 14:41 → ER 14:58 → TELE 16:58 → TELE-CENTR 17:52
PROVIDERS: ADMIT Internal Medicine; ATTEND Internal Medicine
DX: N39.0 Urinary tract infection, site not specified (principal); I50.22 Chronic systolic (congestive) heart failure; B96.20 Unspecified Escherichia coli [E. coli] as the cause of diseases classified elsewhere; F32.9 Major depressive disorder, single episode, unspecified; R07.89 Other chest pain; E11.65 Type 2 diabetes mellitus with hyperglycemia; E78.5 Hyperlipidemia, unspecified; I11.0 Hypertensive heart disease with heart failure; I25.10 Atherosclerotic heart disease of native coronary artery without angina pectoris; I48.91 Unspecified atrial fibrillation; F41.9 Anxiety disorder, unspecified; J44.9 Chronic obstructive pulmonary disease, unspecified; M06.9 Rheumatoid arthritis, unspecified; Z80.3 Family history of malignant neoplasm of breast; I25.2 Old myocardial infarction; Z82.49 Family history of ischemic heart disease and other diseases of the circulatory system; Z86.19 Personal history of other infectious and parasitic diseases; Z86.73 Personal history of transient ischemic attack (TIA), and cerebral infarction without residual deficits; Z86.79 Personal history of other diseases of the circulatory system; Z90.710 Acquired absence of both cervix and uterus; Z95.2 Presence of prosthetic heart valve; Z98.51 Tubal ligation status; Z88.0 Allergy status to penicillin; Z91.041 Radiographic dye allergy status
CPT/HCPCS: 36415; 71045; 80048; 80053; 81001; 82550; 82962; 83735; 83880; 84484; 85025; 85379; 85610; 85652; 85730; 86141; 87081; 87086; 87088; 87186; 87493; 93005; 94761; 96361; 96365; G0378; J0696; J1956; J2405

== ENCOUNTER → 2018-12-04 | Outpatient (CLI) | payer OTHER ==
[~2018-12-04] MED LIST changes: -AML5T PO; -HYDR12.56 PO; -LISI40TA PO; +LORA-654 PO; -LORA0.5T12 PO
== END | disposition home or self-care (01) ==
LOC: LAB 15:45
PROVIDERS: ATTEND Internal Medicine
DX: Z12.11 Encounter for screening for malignant neoplasm of colon (principal); E11.9 Type 2 diabetes mellitus without complications; I11.0 Hypertensive heart disease with heart failure; I50.9 Heart failure, unspecified
CPT/HCPCS: 82043

== ENCOUNTER → 2018-12-29 | Outpatient (CLI) | payer OTHER | END | disposition home or self-care (01) | LOC: LAB 11:33 | PROVIDERS: ATTEND Internal Medicine | DX: Z12.11 Encounter for screening for malignant neoplasm of colon (principal); E11.9 Type 2 diabetes mellitus without complications | CPT/HCPCS: 82306; 87086 ==

== ENCOUNTER → 2019-04-28 | Outpatient (CLI) | payer OTHER ==
[~2019-04-28] MED LIST changes: -LORA-654 PO; +LORA0.5T12 PO
[2019-04-28 16:10] LABS: Albumin 3.5 g/dL (3.4-5.0); Calcium 9.1 mg/dL (8.5-10.1); Potassium 4.5 mmol/L (3.5-5.1)
[2019-04-28 16:13] LABS: Bilirubin, Total 0.7 mg/dL (0.2-1.0)
== END | disposition home or self-care (01) ==
LOC: LAB 15:12
PROVIDERS: ATTEND Internal Medicine
DX: E11.9 Type 2 diabetes mellitus without complications (principal); I11.0 Hypertensive heart disease with heart failure; I50.9 Heart failure, unspecified; E55.9 Vitamin D deficiency, unspecified; N39.0 Urinary tract infection, site not specified; I25.10 Atherosclerotic heart disease of native coronary artery without angina pectoris; I25.2 Old myocardial infarction; F41.9 Anxiety disorder, unspecified; E78.5 Hyperlipidemia, unspecified; Z86.73 Personal history of transient ischemic attack (TIA), and cerebral infarction without residual deficits; Z90.710 Acquired absence of both cervix and uterus; Z90.89 Acquired absence of other organs
CPT/HCPCS: 36415; 80053; 83036; 87086

== ENCOUNTER → 2019-07-29 | Outpatient (CLI) | payer OTHER | END | disposition home or self-care (01) | LOC: LAB 12:06 | PROVIDERS: ATTEND Urology | DX: N39.0 Urinary tract infection, site not specified (principal) | CPT/HCPCS: 87086; 87088; 87186 ==

== ENCOUNTER → 2019-10-11 | Outpatient (CLI) | payer OTHER ==
[~2019-10-11] MED LIST changes: -LORA0.5T12 PO; +LORA0.5T20 PO; +METH2.5T PO; -METH2.5T3 PO
== END | disposition home or self-care (01) ==
LOC: LAB 07:16
PROVIDERS: ATTEND Nurse Practitioner Family
DX: N39.0 Urinary tract infection, site not specified (principal)
CPT/HCPCS: 87086; 87088; 87186

== ENCOUNTER → 2019-11-05 | Outpatient (CLI) | payer OTHER ==
[~2019-11-05] MED LIST changes: +LORA0.5T12 PO; -LORA0.5T20 PO; -METH2.5T PO; +METH2.5T3 PO
[2019-11-05 16:05] LABS: INR 1.12 (0.9-1.15)
== END | disposition home or self-care (01) ==
LOC: LAB 15:17
PROVIDERS: ATTEND Internal Medicine
DX: N39.0 Urinary tract infection, site not specified (principal)
CPT/HCPCS: 36415; 85610; 87086; 87088; 87186

== ENCOUNTER → 2020-01-11 | Outpatient (CLI) | payer OTHER ==
[~2020-01-11] MED LIST changes: -LORA0.5T12 PO; +LORA0.5T20 PO; +METH2.5T PO; -METH2.5T3 PO
[2020-01-11 14:30] LABS: Basophils # (auto) 0.1 10 ^3/uL (0-0.2); Basophils % (auto) 1.8 % (0.0-2.0); Eosinophils # (auto) 0.1 10 ^3/uL (0-0.8); Eosinophils % (auto) 2.1 % (0.0-7.0); Hematocrit 41.8 % (36.0-46.0); Hemoglobin 13.7 g/dL (12.2-16.2); Lymphocytes # (auto) 1.2 10 ^3/uL (0.4-5.4); Lymphocytes % (auto) 24.1 % (10.0-50.0); Mean Corpuscular Hemoglobin 31.5 pg (28.0-32.0); Mean Corpuscular Hgb Conc. 32.7 g/dL (32.0-36.0); Mean Corpuscular Volume 96.3 fL (80.0-100.0); Monocytes # (auto) 0.4 10 ^3/uL (0-1.3); Monocytes % (auto) 7.9 % (0.0-12.0); Neutrophils # (auto) 3.3 10 ^3/uL (1.6-8.6); Neutrophils % (auto) 64.1 % (37.0-80.0); Platelet Count (auto) 179 10^3/uL (140-450); Red Blood Cells 4.34 10^6/uL (4.0-5.20); Red Cell Distribution Width 17.1 % (11.8-14.3); White Blood Cell 5.2 10^3/uL (4.4-10.8)
[2020-01-11 14:40] LABS: INR 1.42 (0.9-1.15)
[2020-01-11 14:49] LABS: Albumin 3.3 g/dL (3.4-5.0); Calcium 9.2 mg/dL (8.5-10.1); Potassium 4.3 mmol/L (3.5-5.1)
[2020-01-11 14:54] LABS: Bilirubin, Total 0.6 mg/dL (0.2-1.0); CRP High Sensitivity 0.26 mg/dL (< 0.3); Total Protein 6.8 g/dL (6.4-8.2)
[2020-01-11 15:33] LABS: Urine Bacteria NONE SEEN /hpf (None Seen); Urine Blood Negative /uL (Negative); Urine Specific Gravity 1.002 (1.001-1.035); Urine WBC <1 /hpf (0 - 5)
== END | disposition home or self-care (01) ==
LOC: LAB 14:00
PROVIDERS: ATTEND Internal Medicine
DX: R73.03 Prediabetes (principal); E78.5 Hyperlipidemia, unspecified; M06.9 Rheumatoid arthritis, unspecified
CPT/HCPCS: 36415; 80053; 80061; 81001; 82043; 83036; 85025; 85610; 85652; 86141

== ENCOUNTER 2020-03-21 05:57 | Emergency (ER) | payer OTHER ==
[~2020-03-21] VITALS: Ht 172.7 cm; Wt 65.8 kg
[2020-03-21 07:05] LABS: Basophils # (auto) 0.1 10 ^3/uL (0-0.2); Basophils % (auto) 1.2 % (0.0-2.0); Eosinophils # (auto) 0.1 10 ^3/uL (0-0.8); Eosinophils % (auto) 2.4 % (0.0-7.0); Hematocrit 38.2 % (36.0-46.0); Hemoglobin 13.2 g/dL (12.2-16.2); Lymphocytes % (auto) 17.6 % (10.0-50.0); Mean Corpuscular Hgb Conc. 34.4 g/dL (32.0-36.0); Mean Corpuscular Volume 95.9 fL (80.0-100.0); Monocytes # (auto) 0.5 10 ^3/uL (0-1.3); Neutrophils % (auto) 70.8 % (37.0-80.0); Platelet Count (auto) 235 10^3/uL (140-450); Red Blood Cells 3.98 10^6/uL (4.0-5.20); Red Cell Distribution Width 15.6 % (11.8-14.3); White Blood Cell 5.7 10^3/uL (4.4-10.8)
[2020-03-21 07:20] LABS: INR 2.85 (0.9-1.15); Partial Thromboplastin Time 42.4 sec (23.0-31.2)
[2020-03-21 07:29] LABS: Albumin 3.3 g/dL (3.4-5.0); Calcium 8.9 mg/dL (8.5-10.1); Potassium 3.4 mmol/L (3.5-5.1)
[2020-03-21 07:32] LABS: BUN/Creatinine Ratio 23.8
[2020-03-21 07:37] LABS: Bilirubin, Total 0.7 mg/dL (0.2-1.0); Total Protein 6.7 g/dL (6.4-8.2)
[2020-03-21 07:44] LABS: Urine Bacteria NONE SEEN /hpf (None Seen); Urine Blood Negative /uL (Negative); Urine Specific Gravity 1.004 (1.001-1.035); Urine WBC 15 /hpf (0 - 5)
[2020-03-21] MEDS ORDERED: LORazepam 0.5 MG TAB PO ONE (08:30)
[2020-03-21] MEDS ORDERED: ACETAMINOPHEN 325 MG TAB PO ONE (08:30)
[2020-03-21] MEDS ORDERED: POTASSIUM EFFERVESENT TAB 25 MEQ PO ONE (10:00)
[2020-03-21] MEDS ORDERED: NITROFURANTOIN 100 mg CAP PO ONE (10:00)
[2020-03-21 10:48] VITALS: BP 119/50
== END 2020-03-21 12:19 | disposition home or self-care (01) ==
LOC: EDBD 05:57 → ER 05:57
DX: R07.89 Other chest pain (principal); F41.9 Anxiety disorder, unspecified; E87.6 Hypokalemia; E46 Unspecified protein-calorie malnutrition; E11.9 Type 2 diabetes mellitus without complications; I12.9 Hypertensive chronic kidney disease with stage 1 through stage 4 chronic kidney disease, or unspecified chronic kidney disease; I50.9 Heart failure, unspecified; E78.5 Hyperlipidemia, unspecified; I25.10 Atherosclerotic heart disease of native coronary artery without angina pectoris; Z90.710 Acquired absence of both cervix and uterus; Z79.899 Other long term (current) drug therapy; Z88.0 Allergy status to penicillin
CPT/HCPCS: 36415; 71045; 80053; 81001; 83880; 84484; 85025; 85610; 85730; 93005